=== PATIENT | male | born 1955 | race Two or more races ===

== ENCOUNTER 2022-11-10 05:27 | Day surgery (SDC) | payer OTHER ==
[~2022-11-10 05:27] MED LIST: COZAAR100 MG PO
[2022-11-10] MEDS ORDERED: TRAMADOL HCL50 MG PO (13:32)
== END 2022-11-10 16:25 | disposition home or self-care (01) ==
LOC: CIR.AMB 05:27
PROVIDERS: ATTEND Surgery
DX: C20 Malignant neoplasm of rectum (principal); R59.0 Localized enlarged lymph nodes; Z20.822 Contact with and (suspected) exposure to COVID-19; I10 Essential (primary) hypertension; Z87.891 Personal history of nicotine dependence

== ENCOUNTER 2023-01-28 18:26 | Inpatient (IN) | payer OTHER ==
[~2023-01-28] VITALS: Ht 167.6 cm; Wt 61.2 kg
[~2023-01-28 18:26] MED LIST changes: +TRAMADOL HCL50 MG PO
--- NOTE | 2023-01-28 19:13 | NUR ---
SE RECIBE PTE MASCULINO DE 67Y ALERTA Y ORIENTADO X3. REFIERE QUE DESDE CYDNEY GARCIA PRESENTADO DOLOR ABDOMINAL, GARCIA EVACUADO POCO Y NO TIENE APETITO. SE MONITOREAN S/V Y SE UBICA A PTE EN AREA DE OBSERVACION.
--- NOTE | 2023-01-28 20:09 | NUR ---
PTE EVALUADO POR MD [facility] [place] MED SE EDUCA A PTE SOBRE EL MISMO Y REFIER EETNENDER. SE EJECUTAN ORDENES BAJO MEDIDAS ACEPTICAS. PTE PEND A RESULTADOS DE LAB Y REALIZACION DE CT.
--- NOTE | 2023-01-28 23:30 | NUR ---
SE RECIBE PTE DE TURNO ANTERIOR, ALERTA Y ORIENTADO X3, SE OBSERVA CON BUEN PATRON RESPIRATORIO, S/V ESTABLES, CAMA EN SUOSA NIVEL MAS BAJO, ID BAND EN GAIL, BARANDAS ELEVADAS POR SOUSA SEGURIDAD. .9NSS BAJANDO A 100ML/HR ANGIO #18 EN ANTEBRAZO DERECHO CLEMENT PO DE EDEMA Y ERITEMA. PENDIENTE CT PO. PTE EN OBSERVACION.
--- NOTE | 2023-01-28 23:35 | NUR ---
SE EXTRAEN MUESTRAS BAJO MEDIDAS ASEPTICAS,SE ADMINISTRA MEDICAMENTO BETTINA ORDEN MEDICA.
--- NOTE | 2023-01-29 07:38 | NUR ---
SE RECIBE PTE ALERTA Y ORIENTADO POR 3 PTE EN AREA DE OBSERVACION EN BIA CON BARANDAS ELEVADA Y TIMBRE ACCESIBLE, SE OBSERVA VENOPUNCION PATENTE Y PO DE EDEMA, PTE SE MANTIENE EN OBSERVAVCION Y BAJO TRATAMIENTO PTE EN ESPERA DEL DR SYLVIA BARROS. .
[2023-02-04] MEDS ORDERED: LOSARTAN POTAS100 MG PO (10:29)
[2023-02-04] MEDS ORDERED: INTEGRA PLUS C1 EACH PO (10:30)
[2023-02-04] MEDS ORDERED: ACETAMINOPHEN500 M1 PO (10:30)
[2023-02-04] MEDS ORDERED: PANTOPRAZOLE SO20 MG PO (10:31)
== END 2023-02-04 12:02 | disposition home or self-care (01) | DRG 330 ==
LOC: ER 18:26 → SEC-K 01-29 10:22 → SURH 01-29 10:22
PROVIDERS: Surgery; ADMIT Internal Medicine; ATTEND Internal Medicine
PROC: BW21YZZ Computerized Tomography (CT Scan) of Abdomen and Pelvis using Other Contrast (ICD-10-PCS; 2023-01-28)
PROC: 3E0336Z Introduction of Nutritional Substance into Peripheral Vein, Percutaneous Approach (ICD-10-PCS; 2023-01-31)
PROC: 0D1N4Z4 Bypass Sigmoid Colon to Cutaneous, Percutaneous Endoscopic Approach (ICD-10-PCS; principal; 2023-02-01 07:00)
DX: C20 Malignant neoplasm of rectum (principal); C78.00 Secondary malignant neoplasm of unspecified lung; E87.1 Hypo-osmolality and hyponatremia; K56.609 Unspecified intestinal obstruction, unspecified as to partial versus complete obstruction; D63.0 Anemia in neoplastic disease; K66.0 Peritoneal adhesions (postprocedural) (postinfection); I10 Essential (primary) hypertension; Z92.21 Personal history of antineoplastic chemotherapy

== ENCOUNTER 2023-04-10 09:12 | Inpatient (IN) | payer OTHER ==
[~2023-04-10] VITALS: Ht 165.1 cm; Wt 567.0 kg
[~2023-04-10 09:12] MED LIST changes: +ACETAMINOPHEN500 M1 PO; +INTEGRA PLUS C1 EACH PO; +LOSARTAN POTAS100 MG PO; +PANTOPRAZOLE SO20 MG PO
--- NOTE | 2023-04-10 09:41 | NUR ---
PTE ALERTA Y ORIENTADO X3 REFIERE FALTA DE AIRE AL CAMINAR DESDE EL MIERCOLES LUEGO DE LA QUIMITERAPIA. SE REALIZA EKG Y SE PRESENTA AL DR. DAN LE CUAL FIRMA Y EVALUA EL MISMO. SE MIDEN Y SE UBICA.
[2023-04-10 11:27] LABS: HEMATOCRIT 32.7 % (39.0-48.0); MEAN CELL VOLUME 100.5 fL (80.0-100.00); MEAN CORPUSCULAR HGB CONC 33.8 g/dl (32.0-36.0); PLATELET COUNT 321 K/uL (150-450); RED BLOOD COUNT 3.25 M/uL (4.00-6.00); RED CELL DISTRIBUTION WIDTH 16.3 % (11.5-14.5)
--- NOTE | 2023-04-10 12:13 | NUR ---
SE RECIBE A PTE ALERTA Y ORIENTADO X3 EN UNIDAD DE ICU 2 EN LA CAMA #2. DA ORDEN DE COLECTAR MUESTRAS DE LAB Y ESTUDIOS DIAGNOSTICOS. SE COLOCA A PTE EN CAMA CON NIVEL MAS BAJO, BARANDAS ELEVADAS POR SEGURIDAD. SE CONECTA A MONITOR CARDIACO CON OXIMETRIA DE PULSO. SE COLECTAN MUESTRAS DE LAB, SE REALIZA VENOPUNCION PARA BAJAR 0;9
--- NOTE | 2023-04-10 15:22 | NUR ---
SE RECIBE PTE DEL TURNO ANTERIOR ALERTA Y ORIENTADO X3, CONECTADO A MONITOR CARDIACO Y OXIMETRIA DE PULSO CONTINUA. EN CAMA CON BARANDAS ELEVADAS Y POSICION MAS BAJA POR SEGURIDAD. PTE CON VENTURI MASK A 11LT. CANALIZADO EN BRAZO DERECHO CON ANGIO #20 AREA PATENTE Y PO DE EDEMA Y ERITEMA. BAJANDO LIQUIDO IV 0.9NSS @ 65ML/HR. PTE CON COLOSTOMIA. ABDOMEN DEPRESIBLE AL [place]. EXTREMIDADES SUPERIORES E INFERIORES PO DE EDEMA Y ERITEMA. SE DESIRE SV Y SE MARY PTE EN OBSERVACION POR CAMBIOS SIGNIFICATIVOS.
--- NOTE | 2023-04-10 15:53 | NUR ---
SE NOTIFICA CT CHEST W/O A SECRETARIA DE TURNO.
[2023-04-12 11:21] LABS: HEMATOCRIT 32.8 % (39.0-48.0); HEMOGLOBIN 10.7 g/dL (13-16.00); MEAN CELL VOLUME 102.4 fL (80.0-100.00); MEAN CORPUSCULAR HEMOGLOBIN 33.3 pg (27.00-32.0); MEAN CORPUSCULAR HGB CONC 32.5 g/dl (32.0-36.0); PLATELET COUNT 346 K/uL (150-450); RED CELL DISTRIBUTION WIDTH 16.2 % (11.5-14.5)
[2023-04-14 08:14] LABS: HEMATOCRIT 30.7 % (39.0-48.0); HEMOGLOBIN 10.1 g/dL (13-16.00); MEAN CELL VOLUME 99.7 fL (80.0-100.00); MEAN CORPUSCULAR HEMOGLOBIN 32.8 pg (27.00-32.0); MEAN CORPUSCULAR HGB CONC 32.9 g/dl (32.0-36.0); PLATELET COUNT 279 K/uL (150-450); RED BLOOD COUNT 3.08 M/uL (4.00-6.00); RED CELL DISTRIBUTION WIDTH 16.7 % (11.5-14.5)
[2023-04-18 06:40] LABS: HEMATOCRIT 34.2 % (39.0-48.0); HEMOGLOBIN 11.3 g/dL (13-16.00); MEAN CELL VOLUME 100.3 fL (80.0-100.00); MEAN CORPUSCULAR HEMOGLOBIN 33.2 pg (27.00-32.0); MEAN CORPUSCULAR HGB CONC 33.1 g/dl (32.0-36.0); PLATELET COUNT 205 K/uL (150-450); RED BLOOD COUNT 3.41 M/uL (4.00-6.00); RED CELL DISTRIBUTION WIDTH 16.4 % (11.5-14.5)
== END 2023-04-20 13:10 | disposition expired | DRG 180 ==
LOC: ER 09:12 → ICU-2 19:00 → ICU 19:00 → SURG 04-13 22:27
PROVIDERS: Emergency Medicine; Internal Medicine Infectious Disease; ADMIT Internal Medicine; ATTEND Internal Medicine
PROC: 3E0F7GC Introduction of Other Therapeutic Substance into Respiratory Tract, Via Natural or Artificial Opening (ICD-10-PCS; 2023-04-10)
PROC: BW24ZZZ Computerized Tomography (CT Scan) of Chest and Abdomen (ICD-10-PCS; 2023-04-10)
PROC: B24BYZZ Ultrasonography of Heart with Aorta using Other Contrast (ICD-10-PCS; 2023-04-10)
PROC: 8E0ZXY6 Isolation (ICD-10-PCS; 2023-04-11)
PROC: BW24YZZ Computerized Tomography (CT Scan) of Chest and Abdomen using Other Contrast (ICD-10-PCS; 2023-04-11)
PROC: 5A09457 Assistance with Respiratory Ventilation, 24-96 Consecutive Hours, Continuous Positive Airway Pressure (ICD-10-PCS; principal; 2023-04-13)
PROC: 02HV33Z Insertion of Infusion Device into Superior Vena Cava, Percutaneous Approach (ICD-10-PCS; 2023-04-13)
PROC: 4A12X4Z Monitoring of Cardiac Electrical Activity, External Approach (ICD-10-PCS; 2023-04-14)
DX: C78.00 Secondary malignant neoplasm of unspecified lung (principal); J18.0 Bronchopneumonia, unspecified organism; J96.90 Respiratory failure, unspecified, unspecified whether with hypoxia or hypercapnia; C19 Malignant neoplasm of rectosigmoid junction; I47.1 Supraventricular tachycardia; D63.0 Anemia in neoplastic disease; D64.81 Anemia due to antineoplastic chemotherapy; Z66 Do not resuscitate; Z51.5 Encounter for palliative care; B96.5 Pseudomonas (aeruginosa) (mallei) (pseudomallei) as the cause of diseases classified elsewhere; B96.1 Klebsiella pneumoniae [K. pneumoniae] as the cause of diseases classified elsewhere; B96.89 Other specified bacterial agents as the cause of diseases classified elsewhere
CPT/HCPCS: 71275